=== PATIENT | female | born 1995 | race Caucasian/White ===

== ENCOUNTER 2016-06-26 18:01 | Emergency (ER) | payer OTHER ==
[2016-06-26 18:14] VITALS: BP 132/70; TEMP 98; BMI 29.0
[2016-06-26] MEDS ORDERED: PHENERGAN 25 MG/ML VIAL 25 MG in SODIUM CHLORIDE 50 ML IV STA (18:22)
[2016-06-26] MEDS ORDERED: SODIUM CHLORIDE 1,000 ML IV STA (18:22)
[2016-06-26 18:34] LABS: BASOPHILS # (AUTO) 0.1 K/uL (0-0.2); BASOPHILS % (AUTO) 0.6 % (0.0-3.0); EOSINOPHILS # (AUTO) 0.1 K/ul (0.0-0.7); EOSINOPHILS % (AUTO) 0.9 % (0.0-7.0); HEMATOCRIT 40.7 % (37.0-47.0); HEMOGLOBIN 13.2 g/dl (12.0-16.0); IMMATURE GRANULOCYTE % (AUTO) 0.2 % (0.0-5.0); LYMPHOCYTES % (AUTO) 23.6 (10.0-50.0); MEAN CORPUSCULAR HEMOGLOBIN 26.4 pg (27.0-31.0); MEAN CORPUSCULAR HGB CONC 32.4 (31.8-35.4); MEAN CORPUSCULAR VOLUME 81.4 fl (81.0-99.0); MONOCYTES # (AUTO) 0.9 K/uL (0.4-2.0); MONOCYTES % (AUTO) 6.9 (0-10); NEUTROPHILS # (AUTO) 8.6 K/ul (2.0-6.9); NEUTROPHILS % (AUTO) 67.8; PLATELET COUNT 249 10^3/uL (140-440); WHITE BLOOD COUNT 12.67 K/ul (4.6-10.2)
[2016-06-26] MEDS ORDERED: PHENERGAN 25 MG/ML VIAL ONE (18:35)
[2016-06-26 18:51] LABS: BILIRUBIN,URINE 1+ (NEGATIVE); KETONES,URINE 1+ (NEGATIVE); LEUKOCYTE ESTERASE ,URINE Negative (NEGATIVE); NITRITE,URINE Positive (NEGATIVE); PROTEIN,URINE 1+ (NEGATIVE); URINE, BLOOD Negative (NEGATIVE)
[2016-06-26 18:54] LABS: ADD URINE MICROSCOPIC YES
[2016-06-26 18:55] LABS: ALANINE AMINOTRANSFERASE 9 U/L (12-78); ALBUMIN 3.9 g/dL (3.4-5.0); ALBUMIN/GLOBULIN RATIO 1.26; ALKALINE PHOSPHATASE 61 U/L (42-98); AMYLASE 32 U/L (25-115); ANION GAP 14.2; ASPARTATE AMINO TRANSFERASE 11 U/L (15-37); BILIRUBIN,TOTAL 0.64 mg/dL (0.00-1.20); BLOOD UREA NITROGEN 7 mg/dL (7-18); CALCIUM 9.3 mg/dL (8.2-10.2); CARBON DIOXIDE 24 mmol/L (21-32); CHLORIDE 104 mmol/L (98-107); GLUCOSE 86 mg/dL (70-110); POTASSIUM 4.2 mmol/L (3.5-5.10); SODIUM 138 mmol/L (136-145)
[2016-06-26 18:56] LABS: BACTERIA,URINE 2+ (NOT PRESENT)
[2016-06-26 18:57] LABS: URINE PREGNANCY INTERNAL QC INTERNAL QC VALID
[2016-06-26 19:06] LABS: LIPASE < 4 U/L (8-78)
--- NOTE | 2016-06-26 19:20 | ED.PDOC ---
General ED Provider: Dr. JANAY BRAVO-ER Chief Complaint: Nausea/Vomiting Stated Complaint: alla been vomiting..no diarrhea..no belly pain no fever lmp was 4mos ago Time Seen by Physician: 19:00 Mode of Arrival: Walk-In Information Source: Patient Exam Limitations: No limitations [facility] Nursing and Triage Documentation Reviewed and Agree: Yes GI Complaint Exam - Vomiting/Diarrhea Complaint/Exam Onset/Duration: 4hrs Episodes of Vomiting over last 24 Hours: 8 Initial Severity: Mild Current Severity: Moderate Character of Vomiting: Reports: Non-bilious Aggravating: Reports: None Alleviating: Reports: None Associated Signs and Symptoms: Denies: Dizziness, Light-headedness, Melena, Hematemesis, Fever, Abdominal pain, Cramping Menses: Irregular Recent Positive Test: No Use of Oral Contraceptives: No Use of Depoprovera: No Non-GI Risk Factors: Reports: None Kussmaul Respirations Present: No Differential Diagnoses: Dehydration, Bacterial Gastroenteritis, , UTI Review of Systems - Review Of Systems Constitutional: Reports: No symptoms Eyes: Reports: No symptoms Ears, Nose, Mouth, Throat: Reports: No symptoms Respiratory: Reports: No symptoms Cardiac: Reports: No symptoms GI: Reports: No symptoms : Reports: No symptoms Musculoskeletal: Reports: No symptoms Skin: Reports: No symptoms Neurological: Reports: No symptoms Endocrine: Reports: No symptoms Hematologic/Lymphatic: Reports: No symptoms All Other Systems: Reviewed and Negative Past Medical History - Past Medical History Previously Healthy: Yes Endocrine: Reports: None Cardiovascular: Reports: None Respiratory: Reports: None Hematological: Reports: None Gastrointestinal: Reports: None Genitourinary: Reports: None Neuro/Psych: Reports: None Musculoskeletal: Reports: None Cancer: Reports: None Last Menstrual Period: 4 MONTHS AGO - Surgical History General Surgical History: Reports: Unknown - Family History Family History: Reports: Unknown - Social History Smoking Status: Current some day smoker Hx Substance Use: No Alcohol Screening: None Lives: With family - Immunizations Tetanus Shot up to Date: No Physical Exam - Physical Exam Appearance: Well-appearing, No pain distress, Well-nourished Eyes: JESSICA, EOMI, Conjunctiva clear ENT: Ears normal, Nose normal, Oropharynx normal Neck: Supple Respiratory: Airway patent, Breath sounds clear, Breath sounds equal, Respirations nonlabored Cardiovascular: RRR GI/: Soft, Nontender, No masses, Bowel sounds normal, No Organomegaly Musculoskeletal: Normal strength Skin: Warm, Dry, Normal color Neurological: Sensation intact, Motor intact, Reflexes intact, Cranial nerves intact, Alert, Oriented Psychiatric: Affect appropriate, Mood appropriate Re-Evaluation - Re-Evaluation Time of Re-Evaluation: 19:19 Status: Improved Vital Signs Stable: Yes Pain Level: 0 Appearance: NAD Lungs: Clear Skin: Warm and Dry Neuro: Alert and Oriented X3 CV: RRR Critical Care Note - Critical Care Note Total Time (mins): 0 Course - Course Hematology/Chemistry: 06/26/16 18:31 06/26/16 18:31 Orders, Labs, Meds: Lab Review 06/26/16 06/26/16 18:31 18:34 WBC 12.67 H RBC 5.00 Hgb 13.2 Hct 40.7 MCV 81.4 MCH 26.4 L MCHC 32.4 RDW Coeff of Trae 13.6 Plt Count 249 Immature Gran % (Auto) 0.2 Neut % (Auto) 67.8 Lymph % (Auto) 23.6 [place] % (Auto) 6.9 Eos % (Auto) 0.9 Baso % (Auto) 0.6 Immature Gran # (Auto) 0.0 Neut # 8.6 H Lymph # 3.0 [place] # 0.9 Eos # 0.1 Baso # 0.1 Sodium 138 Potassium 4.2 Chloride 104 Carbon Dioxide 24 Anion Gap 14.2 BUN 7 Creatinine 0.70 Estimated GFR (MDRD) 107.00 BUN/Creatinine Ratio 10.00 Glucose 86 Calcium 9.3 Total Bilirubin 0.64 AST 11 L ALT 9 L Alkaline Phosphatase 61 Total Protein 7.0 Albumin 3.9 Globulin 3.1 Albumin/Globulin Ratio 1.26 Amylase 32 Lipase < 4 L Urine Color Yellow Urine Clarity Slightly Urine pH 7.0 Ur Specific Velma 1.025 Urine Protein 1+ Urine Glucose (UA) Negative Urine Ketones 1+ Urine Blood Negative Urine Nitrite Positive Urine Bilirubin 1+ Urine Urobilinogen 1.0 Ur Leukocyte Esterase Negative Urine Microscopic WBC 0-2 Ur Squamous Epith Cells 30-50 Amorphous Sediment 1+ Urine Bacteria 2+ Urine Test Positive Orders Category Date Time Status AMYLASE Stat LAB 06/26/16 18:31 Completed CBC W/ AUTO DIFF Stat LAB 06/26/16 18:31 Completed COMPREHENSIVE METABOLIC PANEL Stat LAB 06/26/16 18:31 Completed LIPASE Stat LAB 06/26/16 18:31 Completed URINALYSIS C & S IF INDICATED Stat LAB 06/26/16 18:34 Completed URINE CULTURE Stat LAB 06/26/16 18:34 Received URINE Stat LAB 06/26/16 18:34 Completed Promethazine HCl [Phenergan 25 mg/ml Vial] MEDS 06/26/16 18:35 Discontinued 25 mg .ROUTE .STK-MED ONE Promethazine HCl [Phenergan 25 mg/ml Vial] 25 mg MEDS 06/26/16 18:22 Discontinued 0.9 % Sodium Chloride [Sodium Chloride] 50 ml IV ONCE Sodium Chloride 0.9% [Sodium Chloride] 1,000 ml MEDS 06/26/16 18:22 Active IV BOLUS Medications Generic Name Dose Route Start Last Admin Trade Name Freq PRN Reason Stop Dose Admin Sodium Chloride 1,000 mls @ 1,000 mls/hr 06/26/16 18:22 06/26/16 18:55 Sodium Chloride IV 06/26/16 19:21 1,000 mls/hr BOLUS STA Administration Discontinued Medications Generic Name Dose Route Start Last Admin Trade Name Freq PRN Reason Stop Dose Admin Promethazine HCl 25 mg/ Sodium 51 mls @ 75 mls/hr 06/26/16 18:22 06/26/16 18: 55 Chloride IV 06/26/16 19:02 75 mls/hr ONCE STA Administration Vital Signs: Temp Pulse Resp BP Pulse Ox 06/26/16 18:04 98 F 93 H 16 132/70 99 Departure - Departure Time of Disposition: 19:19 Disposition: HOME SELF-CARE Discharge Problem: Qualifiers: Weeks of gestation: unspecified Qualifier Code: (Z33.1) state, incidental Instructions: Nausea and Vomiting in (ED) Condition: Good Pt referred to PMD for follow-up: Yes Additional Instructions: sips of liquids==phenergan 25mg q 4hrs prn #2--call ob on tuesday--if any abd pain or bleeding--present to the er Allergies/Adverse Reactions: Allergies Penicillins Adverse Reaction (Verified 05/04/15 15:13) Home Medications: Ambulatory Orders 1 [No Reported Medications] 02/05/14 Disposition Discussed With: Patient, Family
== END 2016-06-26 19:30 | disposition home or self-care (01) ==
LOC: ED 18:01
DX: R11.2 Nausea with vomiting, unspecified (principal); Z33.1 Pregnant state, incidental; F17.210 Nicotine dependence, cigarettes, uncomplicated
CPT/HCPCS: 36415; 80053; 81001; 81025; 82150; 83690; 85025; 87086; 96361; 96365; 96366; 99283

== ENCOUNTER 2016-07-02 16:15 | Emergency (ER) ==
[2016-07-02 16:27] VITALS: BP 101/64; TEMP 98.5; BMI 28.8
--- NOTE | 2016-07-02 16:35 | ED.PDOC ---
General ED Provider: Dr. SHERYL CHAMBERLAIN Chief Complaint: Nausea/Vomiting Stated Complaint: Sore throat; glands under jaw sore R greater than L. Time Seen by Physician: 16:20 Mode of Arrival: Walk-In Information Source: Patient Exam Limitations: No limitations Nursing and Triage Documentation Reviewed and Agree: Yes Review of Systems - Review Of Systems Constitutional: Reports: Malaise Ears, Nose, Mouth, Throat: Reports: Throat pain Respiratory: Reports: No symptoms. Denies: Cough, Orthopnea Cardiac: Reports: No symptoms GI: Reports: Nausea (Known ) : Reports: No symptoms All Other Systems: Reviewed and Negative Past Medical History - Past Medical History Previously Healthy: Yes Endocrine: Reports: None Cardiovascular: Reports: None Respiratory: Reports: None Hematological: Reports: None Gastrointestinal: Reports: None Genitourinary: Reports: None Neuro/Psych: Reports: None Musculoskeletal: Reports: None Cancer: Reports: None Last Menstrual Period: 3-4 months - Surgical History General Surgical History: Reports: Unknown - Family History Family History: Reports: Unknown - Social History Smoking Status: Current some day smoker, Light tobacco smoker Hx Substance Use: No Alcohol Screening: Occasionally Physical Exam - Physical Exam Appearance: Ill-appearing Ill-appearing: Mild Eyes: JESSICA, EOMI, Conjunctiva clear, Conjunctiva inflammed ENT: Ears normal, Nose normal, Oropharynx normal (mild erythema) Neck: Supple (Tender to palpation R anterior cervical nodes) Respiratory: Airway patent Skin: Warm, Dry, Normal color Neurological: Sensation intact, Alert, Oriented Psychiatric: Affect appropriate, Mood appropriate Critical Care Note - Critical Care Note Total Time (mins): 10 Course - Course Orders, Labs, Meds: Strep reported negative. Vital Signs: Temp Pulse Resp BP Pulse Ox 07/02/16 16:16 98.5 F 85 20 101/64 99 Departure - Departure Time of Disposition: 17:25 Disposition: HOME SELF-CARE Discharge Problem: Pharyngitis Instructions: Pharyngitis (ED) Condition: Good Pt referred to PMD for follow-up: Yes (Keep planned [employer] appointment) Additional Instructions: Take antibiotic as prescribed. Tylenol for discomfort and/or fever. Prescriptions: Azithromycin 500 mg PO DAILY #3 tablet Allergies/Adverse Reactions: Allergies Penicillins Adverse Reaction (Verified 07/02/16 16:24) Home Medications: Ambulatory Orders Azithromycin 500 mg PO DAILY #3 tablet 07/02/16 Disposition Discussed With: Patient
== END 2016-07-02 17:50 | disposition home or self-care (01) ==
LOC: ED 16:15
DX: J02.9 Acute pharyngitis, unspecified (principal); R11.2 Nausea with vomiting, unspecified; F17.210 Nicotine dependence, cigarettes, uncomplicated; Z33.1 Pregnant state, incidental
CPT/HCPCS: 87651; 87880; 99283

== ENCOUNTER 2018-02-21 20:32 | Emergency (ER) ==
[2018-02-21 20:39] VITALS: BP 104/69; TEMP 99; BMI 32.3
[2018-02-21] MEDS ORDERED: CLEOCIN PO STA (21:24)
[2018-02-21] MEDS ORDERED: ULTRAM PO STA (21:24)
--- NOTE | 2018-02-21 21:30 | ED.PDOC ---
General ED Provider: Dr. MARTHA LEO Chief Complaint: Tooth Problem Stated Complaint: Patient states that she had had right upper canine pain for few days. Has been taking Aleve and Tylenol without relief. Has been trying to see a dentist but has not had one who can take the medical card. Time Seen by Physician: 21:10 Mode of Arrival: Walk-In Information Source: Patient Primary Care Provider: FRANCISCA BAUM Nursing and Triage Documentation Reviewed and Agree: Yes Does patient meet sepsis criteria?: No System Inflammatory Response Syndrome: Not Applicable Sepsis Protocol: For patient's 13 years and over: Temp is 96.8 and below OR 101 and greater Pulse >90 BPM Resp >20/minute Acutely Altered Mental Status Are patient's symptoms suggestive of a new infection, such as: -Pneumonia -Skin, Soft Tissue -Endocarditis -UTI -Bone, Joint Infection -Implantable Device -Acute Abdominal Infection -Wound Infection -Meningitis -Blood Stream Catheter Infection -Unknown EENT Complaint Exam - Dental/Oral Complaint/Exam Mechanism of Injury: No known trauma Onset/Duration: 1 week Timing: Constant Initial Severity: Moderate Current Severity: Severe Location: Left upper incisors Character: Reports: Dull, Aching, Throbbing Aggravating: Reports: Heat, Cold, Chewing Associated Signs and Symptoms: Reports: Swelling, Discharge, Foul taste in mouth Related History: Reports: Similar episode Cardiac Risk Factors: Reports: None Dental/Oral Surgical History: Reports: None Tooth Findings: Present: Percussion tenderness, Gross decay Cervical Lymphadenopathy Present: No Facial Swelling Present: Yes (right lower jaw ) Bleeding Present: No Oropharynx Findings: Absent: Clots, Active bleeding Septal Hematoma: No Foreign Body Present: No Dysphagia Present: No Drooling Present: No Asymmetrical Tonsillar Swelling Present: No Uvula Midline: No Arely-tonsillar Fluctuence: No Trismus Present: No Palatal Petechiae Present: No Scarlatinaform Rash Present: No Teeth Picture: 1 - tender to palpation. noted decay Differential Diagnoses: Dental Abcess, Dental Caries, Gingivitis Review of Systems - Review Of Systems Constitutional: Reports: No symptoms Eyes: Reports: No symptoms Ears, Nose, Mouth, Throat: Reports: Mouth pain, Mouth swelling Respiratory: Reports: No symptoms Cardiac: Reports: No symptoms GI: Reports: No symptoms : Reports: No symptoms Musculoskeletal: Reports: No symptoms Skin: Reports: No symptoms Neurological: Reports: No symptoms Endocrine: Reports: No symptoms Hematologic/Lymphatic: Reports: No symptoms All Other Systems: Reviewed and Negative Past Medical History - Past Medical History Previously Healthy: Yes Endocrine: Reports: None Cardiovascular: Reports: None Respiratory: Reports: None Hematological: Reports: None Gastrointestinal: Reports: None Genitourinary: Reports: None Neuro/Psych: Reports: None Musculoskeletal: Reports: None Cancer: Reports: None Last Menstrual Period: last month - Surgical History General Surgical History: Reports: Other (MISCARRIAGE 5 YEARS AGO) - Family History Family History: Reports: Unknown - Social History Smoking Status: Current some day smoker, Light tobacco smoker Hx Substance Use: No Alcohol Screening: Occasionally Physical Exam - Physical Exam Appearance: Ill-appearing Ill-appearing: Moderate Pain Distress: Moderate Eyes: JESSICA, EOMI, Conjunctiva clear ENT: Ears normal, Nose normal Neck: Supple Respiratory: Airway patent, Breath sounds clear, Breath sounds equal, Respirations nonlabored Cardiovascular: RRR, Pulses normal, No rub, No murmur GI/: Soft, Nontender, No masses, Bowel sounds normal, No Organomegaly Skin: Warm Neurological: Sensation intact, Alert, Oriented Psychiatric: Anxious Critical Care Note - Critical Care Note Total Time (mins): 0 Course - Course Orders, Labs, Meds: Orders Category Date Time Status Clindamycin HCl [Cleocin] MEDS 02/21/18 21:24 Stat 300 mg PO ONCE STA Tramadol HCl [Ultram] MEDS 02/21/18 21:24 Stat 50 mg PO ONCE STA Medications Discontinued Medications Generic Name Dose Route Start Last Admin Trade Name Freq PRN Reason Stop Dose Admin Clindamycin HCl 300 mg 02/21/18 21:24 Cleocin PO 02/21/18 21:25 ONCE STA Tramadol HCl 50 mg 02/21/18 21:24 Ultram PO 02/21/18 21:25 ONCE STA Vital Signs: Temp Pulse Resp BP Pulse Ox 02/21/18 20:33 99.0 F 71 18 104/69 98 Departure - Departure Time of Disposition: 21:30 Disposition: HOME SELF-CARE Discharge Problem: Dental decay, Toothache, Dental abscess Instructions: How to Stop Smoking (ED), Dental Abscess (ED) Condition: Fair Pt referred to PMD for follow-up: Yes IPMP verified?: No Additional Instructions: Take Medication as prescribed Follow up with PCP in 3 days Prescriptions: Clindamycin HCl 300 mg PO TID #30 capsule Ibuprofen [Motrin] 600 mg PO Q6H PRN #30 tablet PRN Reason: Analgesia Tramadol HCl [Ultram] 50 mg PO Q6H PRN #7 tablet PRN Reason: Severe Pain Allergies/Adverse Reactions: Allergies Penicillins Adverse Reaction (Verified 02/21/18 20:36) Home Medications: Ambulatory Orders Clindamycin HCl 300 mg PO TID #30 capsule 02/21/18 Ibuprofen [Motrin] 600 mg PO Q6H PRN #30 tablet 02/21/18 Tramadol HCl [Ultram] 50 mg PO Q6H PRN #7 tablet 02/21/18 Disposition Discussed With: Patient, Family
== END 2018-02-21 21:38 | disposition home or self-care (01) ==
LOC: ED 20:32
DX: K04.7 Periapical abscess without sinus (principal); K08.89 Other specified disorders of teeth and supporting structures; K02.7 Dental root caries; F17.210 Nicotine dependence, cigarettes, uncomplicated
CPT/HCPCS: 99282

== ENCOUNTER 2018-10-10 15:22 | Emergency (ER) ==
[2018-10-10 15:33] VITALS: BP 111/74; TEMP 99.3; BMI 32.7
--- NOTE | 2018-10-10 15:49 | ED.PDOC ---
General ED Provider: Dr. JANAY GUTIERREZ Chief Complaint: Vaginal Bleeding Stated Complaint: Heavy vaginal bleeding, cramping and passing multiple big clots. States had faint positive home test approx 3-4 weeks ago, since has had pelvic cramping/pain. Today had to leave work due to severe nausea with abd cramping and heavy vag bleeding. Time Seen by Physician: 15:35 Mode of Arrival: Walk-In Information Source: Patient Exam Limitations: No limitations Primary Care Provider: FRANCISCA BAUM Nursing and Triage Documentation Reviewed and Agree: Yes Does patient meet sepsis criteria?: No If yes, has appropriate treatment been initiated?: No System Inflammatory Response Syndrome: Not Applicable Sepsis Protocol: For patient's 13 years and over: Temp is 96.8 and below OR 101 and greater Pulse >90 BPM Resp >20/minute Acutely Altered Mental Status Are patient's symptoms suggestive of a new infection, such as: -Pneumonia -Skin, Soft Tissue -Endocarditis -UTI -Bone, Joint Infection -Implantable Device -Acute Abdominal Infection -Wound Infection -Meningitis -Blood Stream Catheter Infection -Unknown COLLATOR HAND Complaint Exam - Vaginal Bleeding Complaint/Exam Onset/Duration: last 24 hrs Symptoms Are: Still present Timing: Constant Initial Severity: Moderate Current Severity: Moderate Character: Reports: Bright red Aggravating: Reports: None Alleviating: Reports: Rest Associated Signs and Symptoms: Reports: Dizziness, Lightheadedness, Cramping Related History: Reports: Use of oral contraceptive. Denies: Similar episode : 1 Para: 2 Ectopic Risk Factors: Reports: None Placental Abruption Risk Factors: Reports: None Related Surgical History: Reports: None Abdominal Findings: Present: Other (suprapubic tenderness) Differential Diagnoses: Threatened AB Review of Systems - Review Of Systems Constitutional: Reports: No symptoms Eyes: Reports: No symptoms Ears, Nose, Mouth, Throat: Reports: No symptoms Respiratory: Reports: No symptoms Cardiac: Reports: No symptoms GI: Reports: No symptoms : Reports: No symptoms Musculoskeletal: Reports: No symptoms Skin: Reports: No symptoms Neurological: Reports: No symptoms Endocrine: Reports: No symptoms Hematologic/Lymphatic: Reports: No symptoms All Other Systems: Reviewed and Negative Past Medical History - Past Medical History Previously Healthy: Yes Endocrine: Reports: None Cardiovascular: Reports: None Respiratory: Reports: None Hematological: Reports: None Gastrointestinal: Reports: None Genitourinary: Reports: None Neuro/Psych: Reports: None Musculoskeletal: Reports: None Cancer: Reports: None Last Menstrual Period: september 02 - Surgical History General Surgical History: Reports: Other (MISCARRIAGE 5 YEARS AGO) - Family History Family History: Reports: Unknown - Social History Smoking Status: Current every day smoker, Light tobacco smoker Hx Substance Use: No Alcohol Screening: None Physical Exam - Physical Exam Appearance: Well-appearing, No pain distress, Well-nourished, Obese Ill-appearing: None Pain Distress: None Eyes: JESSICA, EOMI, Conjunctiva clear ENT: Ears normal, Nose normal, Oropharynx normal Neck: Supple Respiratory: Airway patent, Breath sounds clear, Breath sounds equal, Respirations nonlabored Cardiovascular: RRR, Pulses normal, No rub, No murmur GI/: Soft, Nontender, No masses, Bowel sounds normal, No Organomegaly, Tender (suprapubic) Musculoskeletal: Normal strength, ROM intact, No edema, No calf tenderness Skin: Warm, Dry, Normal color Neurological: Sensation intact, Motor intact, Reflexes intact, Cranial nerves intact, Alert, Oriented Psychiatric: Affect appropriate, Mood appropriate Critical Care Note - Critical Care Note Total Time (mins): 0 Course - Course Hematology/Chemistry: 10/10/18 16:06 10/10/18 16:06 Orders, Labs, Meds: Lab Review 10/10/18 10/10/18 10/10/18 16:06 16:06 16:06 WBC 7.58 RBC 4.88 Hgb 12.9 Hct 39.6 MCV 81.1 MCH 26.4 L MCHC 32.6 RDW Coeff of Trae 13.2 Plt Count 242 Immature Gran % (Auto) 0.1 Neut % (Auto) 55.3 Lymph % (Auto) 31.3 [place] % (Auto) 8.7 Eos % (Auto) 3.8 Baso % (Auto) 0.8 Immature Gran # (Auto) 0.0 Neut # (Auto) 4.2 Lymph # (Auto) 2.4 [place] # (Auto) 0.7 Eos # (Auto) 0.3 Baso # (Auto) 0.1 Sodium 139.6 Potassium 3.86 Chloride 104.6 Carbon Dioxide 26.8 Anion Gap 12.06 BUN 6.7 L Creatinine 0.68 Estimated GFR (MDRD) 108.00 BUN/Creatinine Ratio 9.85 Glucose 81.1 Calcium 8.83 Total Bilirubin 0.30 AST 19.6 ALT 11.5 Alkaline Phosphatase 64.8 Total Protein 6.85 Albumin 4.39 Globulin 2.46 Albumin/Globulin Ratio 1.78 Serum , Qual Negative Orders Category Date Time Status CBC W/ AUTO DIFF Stat LAB 10/10/18 16:06 Completed CMP [COMPREHENSIVE METABOLIC PANEL] Stat LAB 10/10/18 16:06 Completed HCG QUALITATIVE [SERUM ] Stat LAB 10/10/18 16:06 Completed Vital Signs: Temp Pulse Resp BP Pulse Ox 10/10/18 15:23 99.3 F 85 16 111/74 99 Departure - Departure Time of Disposition: 16:45 Disposition: HOME SELF-CARE Discharge Problem: Menorrhagia Instructions: Menorrhagia (ED) Condition: Good Pt referred to PMD for follow-up: Yes IPMP verified?: No Additional Instructions: Continue current care Monitor current menses and if persistent beyond 7 days see pcp for regina Schedule follow up care with OBGYN Allergies/Adverse Reactions: Allergies Penicillins Adverse Reaction (Verified 10/10/18 15:30) Home Medications: Ambulatory Orders 1 [No Reported Medications] 10/10/18 Disposition Discussed With: Patient
== END 2018-10-10 17:26 | disposition home or self-care (01) ==
LOC: ED 15:22
DX: N92.0 Excessive and frequent menstruation with regular cycle (principal); F17.210 Nicotine dependence, cigarettes, uncomplicated
CPT/HCPCS: 36415; 80053; 84703; 85025; 99282

== ENCOUNTER 2018-12-11 10:21 | Emergency (ER) ==
[2018-12-11 10:27] VITALS: BP 128/84; TEMP 99.1; BMI 32.3
[2018-12-11] MEDS ORDERED: SODIUM CHLORIDE 1,000 ML IV STA (11:21)
--- NOTE | 2018-12-11 12:16 | CT ---
EXAM: CTA CHEST (PE PROTOCOL) HISTORY: Chest pain without injury TECHNIQUE: CTA chest with intravenous contrast. Multiplanar images were provided with 3-D re-format ions. 100 mL Omnipaque. COMPARISON: None FINDINGS: No pulmonary arterial filling defects. Thoracic aorta appears normal. Normal heart size. No perica rdial effusion. Lungs are clear. No vascular congestion, pneumothorax or pleural fluid. Bones reveal no acute abnormality. See also same day CT thoracic spine report. IMPRESSION: 1. No pulmonary arterial thromboembolism. 2. Lungs are clear. 3. No acute bony finding.
--- NOTE | 2018-12-11 12:20 | CT ---
EXAM: CT thoracic spine. HISTORY: Back pain without injury. TECHNIQUE: CT thoracic spine without contrast. Multiplanar images provided. FINDINGS: No comparison. There is mild spinal curvature convex to the left centered at the mid spine level estimated at about 3-4 degrees. Scattered mild degenerative endplate changes are noted. There is no fracture, loss of vertebral body height or spondylolisthesis. No central canal stenosis or evidence of neural foramina l narrowing. IMPRESSION: 1. Mild degenerative endplate changes. 2. Mild scoliosis. 3. No fracture.
--- NOTE | 2018-12-11 12:52 | ED.PDOC ---
General ED Provider: Dr. SALTY MCCARTHY Chief Complaint: Back Pain Stated Complaint: 23 yrs old white female c/o of a / atraumatic posterior chest wall pain. described the pain as sharp. ot denied N,VD, OR L.O.C Time Seen by Physician: 10:21 (SEEN WITH VERNA ON ARRIVAL AND D/C WITH LIBIA) Mode of Arrival: Walk-In Information Source: Patient Exam Limitations: No limitations Primary Care Provider: FRANCISCA BAUM Referred to ED by: Other (NO EXERTIONAL CHEST PAIN ) Nursing and Triage Documentation Reviewed and Agree: Yes Does patient meet sepsis criteria?: No System Inflammatory Response Syndrome: Not Applicable Sepsis Protocol: For patient's 13 years and over: Temp is 96.8 and below OR 101 and greater Pulse >90 BPM Resp >20/minute Acutely Altered Mental Status Are patient's symptoms suggestive of a new infection, such as: -Pneumonia -Skin, Soft Tissue -Endocarditis -UTI -Bone, Joint Infection -Implantable Device -Acute Abdominal Infection -Wound Infection -Meningitis -Blood Stream Catheter Infection -Unknown Musculoskeletal Complaint Exam - Back Pain Complaint/Exam Mechanism of Injury: Reports: No known trauma Onset/Duration: THIS MORNING , NO EXERTIONAL COMPONENT. PAIN IS SOMEWHAT REPRODUCEABLE BY P Symptoms Are: Still present Timing: Intermittent Initial Severity: Moderate Current Severity: Mild Location: Reports: Discrete (T SPINE ) Character: Reports: Dull, Aching, Spasmodic Aggravating: Reports: Movements, Lifting, Bending Alleviating: Reports: Rest, Position Associated Signs and Symptoms: Denies: Swelling, Redness, Bruising, Fever, Weakness, Numbness, Tingling, Abdominal pain, Flank pain, Bladder incontinence, Bowel incontinence, Weight loss, Pain with weight bearing TAD Risk Factors: Reports: None AAA Risk Factors: Reports: None Cauda Equina Risk Factors: Reports: None Epidural Abcess Risk Factors: Reports: None Related Surgical History: Reports: None Focal Tenderness: No Paraspinal Muscle Tenderness: No Paraspinal Muscle Spasm: No Scoliosis: No Lordosis: No Kyphosis: No SLR Test: Right Negative, Left Negative Hip Motion Testing Pain: Right Negative, Left Negative Focal Weakness: Present: None Focal Sensory Loss: Present: None Gait: Present: Normal Differential Diagnoses: Arthritis, Fracture, Renal Colic, Strain, Sprain, Other (DISSECTION, P.E.) Review of Systems - Review Of Systems Constitutional: Reports: No symptoms Eyes: Reports: No symptoms Ears, Nose, Mouth, Throat: Reports: No symptoms Respiratory: Reports: No symptoms Cardiac: Reports: No symptoms GI: Reports: No symptoms : Reports: No symptoms Musculoskeletal: Reports: Back pain (T/ SPINE ) Skin: Reports: No symptoms Neurological: Reports: No symptoms Endocrine: Reports: No symptoms Hematologic/Lymphatic: Reports: No symptoms All Other Systems: Reviewed and Negative Past Medical History - Past Medical History Previously Healthy: Yes Endocrine: Reports: None Cardiovascular: Reports: None Respiratory: Reports: None Hematological: Reports: None Gastrointestinal: Reports: None Genitourinary: Reports: None Neuro/Psych: Reports: None Musculoskeletal: Reports: None Cancer: Reports: None Last Menstrual Period: ended yesterday - Surgical History General Surgical History: Reports: Other (MISCARRIAGE 5 YEARS AGO) - Family History Family History: Reports: Unknown - Social History Smoking Status: Current some day smoker, Light tobacco smoker Hx Substance Use: No Alcohol Screening: Occasionally - Immunizations Tetanus Shot up to Date: Yes Physical Exam - Physical Exam Appearance: Well-appearing, No pain distress, Well-nourished Eyes: JESSICA, EOMI, Conjunctiva clear ENT: Ears normal, Nose normal, Oropharynx normal Respiratory: Airway patent, Breath sounds clear, Breath sounds equal, Respirations nonlabored Cardiovascular: RRR, Pulses normal, No rub, No murmur GI/: Soft, Nontender, No masses, Bowel sounds normal, No Organomegaly Musculoskeletal: Normal strength, ROM intact, No edema, No calf tenderness Skin: Warm, Dry, Normal color Neurological: Sensation intact, Motor intact, Reflexes intact, Cranial nerves intact, Alert, Oriented Psychiatric: Affect appropriate, Mood appropriate Interpretation - Radiology Interpretation Radiology Interpretation By: Radiologist Radiology Results: No acute changes Exam Interpreted: CT Scan (OF T SPINE AND NEGATIVE CTA CHEST) - Box Maker Wood Rate: Normal Rhythm: Sinus Ectopy: None - EKG Interpretation Rate: Normal Rhythm: Sinus Ectopy: None [place]: NL ST Segment: Normal Re-Evaluation - Re-Evaluation Time of Re-Evaluation: 11:00 Status: Improved Vital Signs Stable: Yes Pain Level: 0 Appearance: NAD Lungs: Clear Skin: Warm and Dry Neuro: Alert and Oriented X3 CV: RRR - Re-Evaluation Time of Re-Evaluation: 12:55 Status: Improved Vital Signs Stable: Yes Pain Level: 0 Appearance: NAD Skin: Warm and Dry Neuro: Alert and Oriented X3 CV: RRR Critical Care Note - Critical Care Note Total Time (mins): 0 Course - Course Hematology/Chemistry: 12/11/18 11:02 12/11/18 11:02 Orders, Labs, Meds: Lab Review 12/11/18 12/11/18 12/11/18 11:02 11:02 11:02 WBC 6.35 RBC 4.87 Hgb 13.1 Hct 40.7 MCV 83.6 MCH 26.9 L MCHC 32.2 RDW Coeff of Trae 13.7 Plt Count 237 Immature Gran % (Auto) 0.2 Neut % (Auto) 49.1 Lymph % (Auto) 40.5 Wilkin % (Auto) 6.6 Eos % (Auto) 2.8 Baso % (Auto) 0.8 Immature Gran # (Auto) 0.0 Neut # (Auto) 3.1 Lymph # (Auto) 2.6 Wilkin # (Auto) 0.4 Eos # (Auto) 0.2 Baso # (Auto) 0.1 Sodium 142.1 Potassium 3.67 Chloride 106.0 Carbon Dioxide 27.2 Anion Gap 12.57 BUN 8.0 Creatinine 0.86 Estimated GFR (MDRD) 83.00 BUN/Creatinine Ratio 9.30 Glucose 91.5 Calcium 8.84 Total Bilirubin 0.51 AST 14.0 ALT 11.9 Alkaline Phosphatase 61.5 Total Protein 7.07 Albumin 4.21 Globulin 2.86 Albumin/Globulin Ratio 1.47 Serum , Qual Negative Urine Color Urine Clarity Urine pH Ur Specific [place] Urine Protein Urine Glucose (UA) Urine Ketones Urine Blood Urine Nitrite Urine Bilirubin Urine Urobilinogen Ur Leukocyte Esterase Ur Squamous Epith Cells Urine Mucus Urine Opiates Screen Ur Oxycodone Screen Urine Methadone Screen Ur Propoxyphene Screen Ur Barbiturates Screen U Tricyclic Antidepress Ur Phencyclidine Scrn Ur Amphetamine Screen U Methamphetamines Scrn U Benzodiazepines Scrn Urine Cocaine Screen U Cannabinoids Screen 12/11/18 12/11/18 11:10 11:10 WBC RBC Hgb Hct MCV MCH MCHC RDW Coeff of Trae Plt Count Immature Gran % (Auto) Neut % (Auto) Lymph % (Auto) Wilkin % (Auto) Eos % (Auto) Baso % (Auto) Immature Gran # (Auto) Neut # (Auto) Lymph # (Auto) Wilkin # (Auto) Eos # (Auto) Baso # (Auto) Sodium Potassium Chloride Carbon Dioxide Anion Gap BUN Creatinine Estimated GFR (MDRD) BUN/Creatinine Ratio Glucose Calcium Total Bilirubin AST ALT Alkaline Phosphatase Total Protein Albumin Globulin Albumin/Globulin Ratio Serum , Qual Urine Color Yellow Urine Clarity Slightly Urine pH 6.0 Ur Specific [place] >=1.030 Urine Protein 1+ Urine Glucose (UA) Negative Urine Ketones Negative Urine Blood Negative Urine Nitrite Negative Urine Bilirubin Negative Urine Urobilinogen 0.2 Ur Leukocyte Esterase Negative Ur Squamous Epith Cells 5-10 Urine Mucus 2+ Urine Opiates Screen Negative Ur Oxycodone Screen Negative Urine Methadone Screen Negative Ur Propoxyphene Screen Negative Ur Barbiturates Screen Negative U Tricyclic Antidepress Negative Ur Phencyclidine Scrn Negative Ur Amphetamine Screen Negative U Methamphetamines Scrn Negative U Benzodiazepines Scrn Negative Urine Cocaine Screen Negative U Cannabinoids Screen Positive Orders Category Date Time Status EKG-(ED ONLY) Stat CARDIO 12/11/18 10:52 Completed NPO REMINDER: IMAGING ONCE CARE 12/11/18 10:52 Completed ED IV/MEDIPORT/POWERPORT .ONCE EMERGENCY 12/11/18 10:51 Active CBC W/ AUTO DIFF Stat LAB 12/11/18 11:02 Completed COMPREHENSIVE METABOLIC PANEL Stat LAB 12/11/18 11:02 Completed SERUM Stat LAB 12/11/18 11:02 Completed UA [URINALYSIS C & S IF INDICATED] Stat LAB 12/11/18 11:10 Completed URINE DRUG SCREEN (RAPID FOR ED) [DRUG SCREEN, URINE, LAB 12/11/18 11:10 Completed RAPID] Stat 0.9 % Sodium Chloride [Saline Flush] MEDS 12/11/18 10:51 Active 1 syr IVF PRN PRN Sodium Chloride 0.9% [Sodium Chloride] 1,000 ml MEDS 12/11/18 11:[address] CHEST PE PROTOCOL Stat RADS 12/11/18 10:[address] THORACIC SPINE W/O CONTRAST Stat RADS 12/11/18 10:52 Completed Medications Generic Name Dose Route Start Last Admin Trade Name Freq PRN Reason Stop Dose Admin Sodium Chloride 1,000 mls @ 125 mls/hr 12/11/18 11:21 12/11/18 11:27 Sodium Chloride IV 12/11/18 19:20 125 mls/hr BOLUS STA Administration Sodium Chloride 1 syr 12/11/18 10:51 12/11/18 11:27 Saline Flush IVF 1 syr PRN PRN Administration To flush IV Vital Signs: Temp Pulse Resp BP Pulse Ox 12/11/18 10:21 99.1 F 94 H 20 128/84 98 Departure - Departure Time of Disposition: 12:55 Disposition: HOME SELF-CARE Discharge Problem: Thoracic back pain Qualifiers: Chronicity: acute Back pain laterality: unspecified Qualified Code(s): M54.6 - Pain in thoracic spine Instructions: Back Pain (ED) Condition: Good Pt referred to PMD for follow-up: Yes IPMP verified?: No Additional Instructions: Please call your Family Physician as soon as possible to schedule a follow-up appointment. WE DISCUSSED THE X RAYS HAVE BEEN NEGATIVE BUT IF THE PAIN IS WORSE PASSING OUT, HAVE CHEST PAIN OR JUST GENERALLY SICKER. YOU MUST RETURN TO THE EMERGENCY ROOM UNDER THOSE SUCH SITUATIONS . AT THIS TIME NO LIFE THREATENING ISSUES HAVE BEEN NOTED BUT, THE SITUATION CAN ALWAYS CHANGE AND YOU MUST BE ATTENTIVE TO YOUR SYMPTOMS AND MAKE SURE YOU FOLLOW UP WITH YOUR M.D. ONCE AGAIN AT THIS TIME NO EMERGENCY CONDITIONS HAVE BEEN NOTED Prescriptions: Hydrocodone Bit/Acetaminophen [Nunda 5-325] 1 each PO Q6HR #7 tablet Allergies/Adverse Reactions: Allergies Penicillins Adverse Reaction (Verified 12/11/18 10:35) Home Medications: Ambulatory Orders Hydrocodone Bit/Acetaminophen [Nunda 5-325] 1 each PO Q6HR #7 tablet 12/11/18
[2018-12-11] MEDS ORDERED: TORADOL IVP STA (12:55)
== END 2018-12-11 13:19 | disposition home or self-care (01) ==
LOC: ED 10:21
DX: M54.6 Pain in thoracic spine (principal); F17.210 Nicotine dependence, cigarettes, uncomplicated
CPT/HCPCS: 36415; 80053; 80306; 81001; 84703; 85025; 93005; 93010; 96361; 96374; 99283

== ENCOUNTER 2019-02-04 11:40 | Emergency (ER) ==
[2019-02-04 11:45] VITALS: BP 113/76; TEMP 98.6; BMI 34.3
--- NOTE | 2019-02-04 11:53 | ED.PDOC ---
General ED Provider: Dr. JANAY BRAVO-ER Chief Complaint: Tooth Problem Stated Complaint: my back tooth is killing me Time Seen by Physician: 11:51 Mode of Arrival: Walk-In Information Source: Patient Exam Limitations: No limitations Primary Care Provider: FRANCISCA BAUM Nursing and Triage Documentation Reviewed and Agree: Yes Does patient meet sepsis criteria?: No System Inflammatory Response Syndrome: Not Applicable Sepsis Protocol: For patient's 13 years and over: Temp is 96.8 and below OR 101 and greater Pulse >90 BPM Resp >20/minute Acutely Altered Mental Status Are patient's symptoms suggestive of a new infection, such as: -Pneumonia -Skin, Soft Tissue -Endocarditis -UTI -Bone, Joint Infection -Implantable Device -Acute Abdominal Infection -Wound Infection -Meningitis -Blood Stream Catheter Infection -Unknown EENT Complaint Exam - Dental/Oral Complaint/Exam Mechanism of Injury: No known trauma Onset/Duration: 2 days Symptoms Are: Still present Timing: Constant Initial Severity: Mild Current Severity: Moderate Location: left lower molar and premolar Character: Reports: Dull, Aching, Throbbing Aggravating: Reports: Heat, Cold, Chewing Associated Signs and Symptoms: Reports: Swelling Related History: Reports: Previous tooth problem Tooth Findings: Present: Percussion tenderness, Gross decay, Gross caries Cervical Lymphadenopathy Present: No Facial Swelling Present: No Bleeding Present: No Oropharynx Findings: Absent: Clots, Active bleeding Septal Hematoma: No Foreign Body Present: No Dysphagia Present: No Drooling Present: No Asymmetrical Tonsillar Swelling Present: No Uvula Midline: Yes Arely-tonsillar Fluctuence: No Trismus Present: No Palatal Petechiae Present: No Scarlatinaform Rash Present: No Differential Diagnoses: Dental Abcess, Dental Caries Review of Systems - Review Of Systems Constitutional: Reports: No symptoms Eyes: Reports: No symptoms Ears, Nose, Mouth, Throat: Reports: Mouth pain, Mouth swelling Respiratory: Reports: No symptoms Cardiac: Reports: No symptoms GI: Reports: No symptoms : Reports: No symptoms Musculoskeletal: Reports: No symptoms Skin: Reports: No symptoms Neurological: Reports: No symptoms Endocrine: Reports: No symptoms Hematologic/Lymphatic: Reports: No symptoms All Other Systems: Reviewed and Negative Past Medical History - Past Medical History Previously Healthy: Yes Endocrine: Reports: None Cardiovascular: Reports: None Respiratory: Reports: None Hematological: Reports: None Gastrointestinal: Reports: None Genitourinary: Reports: None Neuro/Psych: Reports: None Musculoskeletal: Reports: None Cancer: Reports: None Last Menstrual Period: january--first part - Surgical History General Surgical History: Reports: Other (MISCARRIAGE 5 YEARS AGO) - Family History Family History: Reports: Unknown - Social History Smoking Status: Current some day smoker, Light tobacco smoker Hx Substance Use: No Alcohol Screening: Occasionally Physical Exam - Physical Exam Appearance: Well-appearing, No pain distress, Well-nourished Pain Distress: Moderate Eyes: JESSICA, EOMI, Conjunctiva clear ENT: Ears normal, Nose normal, Oropharynx normal (noted tenderness to left lower premolar and molar with surrounding gum erythema) Neck: Supple Respiratory: Airway patent, Breath sounds clear, Breath sounds equal, Respirations nonlabored Cardiovascular: RRR, Pulses normal, No rub, No murmur GI/: Soft, Nontender, No masses, Bowel sounds normal, No Organomegaly Musculoskeletal: Normal strength, ROM intact, No edema, No calf tenderness Skin: Warm, Dry, Normal color Neurological: Sensation intact, Motor intact, Reflexes intact, Cranial nerves intact, Alert, Oriented Psychiatric: Affect appropriate, Mood appropriate Critical Care Note - Critical Care Note Total Time (mins): 0 Course - Course Vital Signs: Temp Pulse Resp BP Pulse Ox 02/04/19 11:40 98.6 F 95 H 20 113/76 99 Departure - Departure Time of Disposition: 11:53 Disposition: HOME SELF-CARE Discharge Problem: Dental abscess Instructions: Dental Abscess (ED) Condition: Good Pt referred to PMD for follow-up: Yes IPMP verified?: No Additional Instructions: f/u dentist akil Prescriptions: Hydrocodone Bit/Acetaminophen [Glen 7.5-325] 1 each PO Q4HR PRN #10 tablet PRN Reason: Moderate Pain Clindamycin HCl [Cleocin HCl] 300 mg PO Q8HR #20 capsule Allergies/Adverse Reactions: Allergies Penicillins Adverse Reaction (Verified 02/04/19 11:47) Home Medications: Ambulatory Orders Clindamycin HCl [Cleocin HCl] 300 mg PO Q8HR #20 capsule 02/04/19 Hydrocodone Bit/Acetaminophen [Glen 7.5-325] 1 each PO Q4HR PRN #10 tablet 06/24 Disposition Discussed With: Patient
== END 2019-02-04 12:01 | disposition home or self-care (01) ==
LOC: ED 11:40
DX: K08.89 Other specified disorders of teeth and supporting structures (principal); K04.7 Periapical abscess without sinus; K02.7 Dental root caries; F17.210 Nicotine dependence, cigarettes, uncomplicated
CPT/HCPCS: 99282